=== PATIENT | female | born 1985 | race Caucasian/White ===

== ENCOUNTER 2018-08-08 13:44 | Emergency (ER) | payer MEDICAID ==
[~2018-08-08] VITALS: Ht 160 cm; Wt 90.7 kg
--- OUTSIDE RECORDS SUMMARY | 2018-08-08 13:50 | XMS REPORT | Continuity of Care Document ---
Author Author [facility] Organization [facility] Address Unknown Phone Unavailable Allergies Active Description Code Type Severity Reaction Onset Reported/Identified Relationship to Patient Clinical Status Yes latex [id number] Drug Allergy Unknown RASH 10/12/2014 Medications There is no data. Problems Date Dx Coded Attending Type Code Diagnosis Diagnosed By 10/12/2014 EMILY BAL DO Ot 655.73 Procedures There is no data. Results There is no data. Encounters ACCT No. Visit Date/Time Discharge Status Pt. Type Provider Facility Loc./Unit Complaint [id number] 10/12/2014 21:01:00 10/12/2014 22:55:00 [facility] [id number] 10/13/2017 09:00:00 10/13/2017 23:59:59 CLS Out[facility]
--- NOTE | 2018-08-08 14:29 | ED GI ---
General Chief Complaint: Rect Problems Stated Complaint: RECTAL PAIN Source of Information: Patient Exam Limitations: No Limitations History of Present Illness Date Seen by Provider: Aug 08, 2018 Time Seen by Provider: 14:19 Initial Comments Patient presents to ER by private conveyance with chief complaint she's having some pain in her anus. She has a history of hemorrhoids for the past 3 years ever since the delivery of her children. She has also had IBS and difficulty having bowel movements. She does not use any stool softeners and fiber. She denies any fever. She has had some blood on wiping. She's never had to have a hemorrhoid banded or infarcted. Allergies and Home Medications Allergies Coded Allergies: latex (Unverified Allergy, Unknown, RASH, 10/12/14) Home Medications Cyclobenzaprine Hcl 10 Mg Tablet, 10 MG PO PRN, (Reported) Vit#96/Ferrous Fum/Fa 1 Each Tablet, 1 EACH PO TID, (Reported) Patient Home Medication List Home Medication List Reviewed: Yes Review of Systems Review of Systems Constitutional: No chills, No diaphoresis EENTM: No Blurred Vision, No Double Vision Respiratory: Denies Cough, Denies Orthopnea Cardiovascular: Denies Chest Pain, Denies Lightheadedness Gastrointestinal: Constipated; Denies Diarrhea, Denies Nausea Past Rrccouo-Badwvs-Ctvvip Hx Patient Social History Alcohol Use: Denies Use Recreational Drug Use: No Smoking Status: Never a Smoker Recent Foreign Travel: No Contact w/Someone Who Travel: No Physical Exam Vital Signs Capillary Refill : Height/Weight/BMI Height: 5'1.00" Weight: 263lbs. oz. 119.180936xl; BMI Method: General Appearance: WD/WN, mild distress HEENT: PERRL/EOMI, pharynx normal Gastrointestinal: normal bowel sounds, non tender, soft Rectal: normal rectal tone, other (from 6:00 and 12:00 there are some mild external hemorrhoids noted without any erythema, tenderness. Internally there are some palpable hemorrhoids that are quite tender. No overt blood. No fissure. ) Progress/Results/Core Measures Consults : Consulting Physician: LENNY ROLDAN MD Consults Notes Dr. Roldan will set the patient up for follow-up to get it taken care of. Departure Impression Primary Impression: Internal bleeding hemorrhoids Disposition: HOME, SELF-CARE Condition: Stable Departure-Patient Inst. Decision time for Depature: 14:27 Referrals: NO,LOCAL PHYSICIAN (PCP) Primary Care Physician LENNY ROLDAN MD Patient Instructions: Hemorrhoids (DC) Add. Discharge Instructions: Use the nifedipine paced every 6 hours as needed for relief of pain. You can also use Proctofoam or other [id number]-[id number] hemorrhoid creams. Use Tylenol and ibuprofen for breakthrough pain. Follow-up with Dr. Roldan to get set up to have your hemorrhoids taken care of. All discharge instructions reviewed with patient and/or family. Voiced understanding. LUPE SEARS Aug 08, 2018 14:29
[2018-08-08 14:37] VITALS: BP 129/79
== END 2018-08-08 14:37 | disposition home or self-care (01) ==
LOC: EDUNIT# 13:44 → ER 13:46
DX: K64.8 Other hemorrhoids (principal); K58.9 Irritable bowel syndrome, unspecified; Z91.040 Latex allergy status
CPT/HCPCS: 99282

== ENCOUNTER 2018-08-12 05:30 | Outpatient (CLI) | payer MEDICAID ==
[~2018-08-12] VITALS: Ht 157.5 cm; Wt 113.4 kg
[~2018-08-12 05:30] MED LIST: CYCL10TA45 PO; PREN1TAB25 PO
== END 2018-08-12 09:53 ==
LOC: PREOP 05:30
PROVIDERS: ATTEND Surgery
DX: Z01.818 Encounter for other preprocedural examination (principal)

== ENCOUNTER 2018-08-15 09:32 | Day surgery (SDC) | payer MEDICAID ==
[~2018-08-15] VITALS: Ht 157.5 cm; Wt 113.4 kg
[2018-08-15 09:35] VITALS: BP 131/82
[2018-08-15] MEDS ORDERED: LACTATED RINGERS 1,000 ML IV PRN (09:52)
[2018-08-15] MEDS ORDERED: ceFAZolin 2 GM IV Premixed 50 ML IV ONE (10:00)
[2018-08-15] MEDS ORDERED: MIDAZOLAM 2 MG/2 ML (VERSED) VIAL ONE (11:26)
[2018-08-15] MEDS ORDERED: PROPOFOL INJECTION 50 ML IV ONE ×2 (11:26→12:39)
--- NOTE | 2018-08-15 11:38 | Progress Note-Pre Operative ---
Pre-Operative Progress Note H&P Reviewed The H&P was reviewed, patient examined and no changes noted. Date Seen by Provider: Aug 11, 2018 Time Seen by Provider: 15:00 Date H&P Reviewed: Aug 15, 2018 Time H&P Reviewed: 11:38 Pre-Operative Diagnosis: rectal pain and bleeding LENNY ROLDAN MD Aug 15, 2018 11:38
[2018-08-15] MEDS ORDERED: BUP/EPI 0.5% 1:200,000 (SENSORCAINE) 30 ML VIAL ONE (12:15)
[2018-08-15] MEDS ORDERED: HYDROmorphone 2 MG/ML VIAL (DILAUDID) IV ONE (13:00)
[2018-08-15] MEDS ORDERED: ONDANSETRON 4 MG/2 ML (SDV) Z0FRAN IVP PRN (13:00)
--- NOTE | 2018-08-15 13:03 | Operative Report ---
Operative Report Date of Procedure/Surgery Aug 15, 2018 Surgeon (s) LENNY ROLDAN MD Drug Worker (s): N/A Post-Operative Diagnosis posterior and anterior anal fissure Hemorrhoids Procedure Performed exam under anesthetic Submucosal injection of local anesthetic Colonoscopy to cecum Description of Procedure Anesthesia Type: Conscious Sedation Estimated blood loss (mL): None Specimen(s) collected/removed None Description of the Procedure Indication for the procedure: This lady presented with rectal pain and intermittent rectal bleeding of several weeks' duration. Since clinical examination in the office was limited, it was felt reasonable to perform an exam under anesthetic to establish a definitive diagnosis. Should a fissure be found, the potential for submucosal injection of local anesthetic, to achieve immediate relief of the pain was highlighted. To evaluate the source of rectal bleeding, concomitant colonoscopy was felt to be reasonable. Informed consent was obtained after reviewing the procedures in detail. Description of the procedure: She was placed supine on the operative table and our BLASTING ENTRY SPECIALIST administered sedation, monitoring her vital signs.2 g of Ancef where administered IV as prophylaxis against infection. Subsequently, she was placed in combined lithotomy position, her legs being supported on stirrups. Exam under anesthetic/submucosal injection of local anesthetic: Examination confirmed an acute anterior and a chronic posterior fissure, along with external hemorrhoids. The area was cleansed with antiseptic and 0.5 percent Marcaine with epinephrine injected submucosally around the anterior and posterior fissures. Subsequently, a gentle digital anal dilatation was performed. Colonoscopy: The colonoscope was then introduced rectum and advanced all the way to the cecum. The quality of bowel preparation was excellent. The scope was then withdrawn slowly and the mucosa examined in a systematic fashion. Findings: Internal hemorrhoids, the source of her bleeding. These were not large enough require any intervention. No polyps were found. She tolerated the procedure well and was taken back to the nursing area in a stable condition. Findings of the Procedure See op report Allergies and Home Medications Allergies Coded Allergies: latex (Unverified Allergy, Mild, RASH, 08/12/18) Home Medications No Active Prescriptions or Reported Meds Patient Home Medication List Home Medication List Reviewed: Yes LENNY ROLDAN MD Aug 15, 2018 13:03
--- NOTE | 2018-08-15 13:04 | Discharge Inst-Simple/Standard ---
Discharge Inst-Standard Discharge Medications New, Converted or Re-Newed RX: Other Patient Instructions/Follow Up Plan of Care/Instructions/FU: stool softeners to avoid constipation. To call if any concerns arise Activity as Tolerated: Yes Discharge Diet: No Restrictions LENNY ROLDAN MD Aug 15, 2018 13:04
[2018-08-15 13:25] VITALS: BP 106/54
[2018-08-15 13:55] VITALS: BP 110/80
[2018-08-15 14:25] VITALS: BP 117/81
[2018-08-15 14:40] VITALS: BP 117/81
--- NOTE | 2018-08-15 14:40 | NUR ---
HAS RESTED QUIETLY IN BED DURING RECOVERY, PASSING FLATUS OCCASIONALLY. RATES RECTAL DISCOMFORT 2. TAKING PO FLUIDS WITHOUT PROBLEM AND STEADY WHEN UP TO DRESS FOR HOME. STATES SHE IS READY FOR DISMISSAL.
== END 2018-08-15 14:40 | disposition home or self-care (01) ==
LOC: ENDO 09:32 → SDC 14:40
PROVIDERS: ATTEND Surgery
DX: K64.8 Other hemorrhoids (principal); K60.0 Acute anal fissure; K60.1 Chronic anal fissure; Z11.2 Encounter for screening for other bacterial diseases; F17.210 Nicotine dependence, cigarettes, uncomplicated; F32.9 Major depressive disorder, single episode, unspecified
CPT/HCPCS: 84703; 87081

== ENCOUNTER 2018-10-13 18:03 | Emergency (ER) | payer MEDICAID ==
[~2018-10-13] VITALS: Ht 154.9 cm; Wt 117.9 kg
[2018-10-13 18:20] LABS: BASOPHILS % (AUTO) 0 % (0-10); EOSINOPHILS # (AUTO) 0.1 10^3/uL (0.0-0.3); EOSINOPHILS % (AUTO) 0 % (0-10); HEMATOCRIT 42 % (35-52); HEMOGLOBIN 13.9 G/DL (11.5-16.0); LYMPHOCYTES # (AUTO) 3.4 X 10^3 (1.0-4.0); LYMPHOCYTES % (AUTO) 17 % (12-44); MEAN CORPUSCULAR HEMOGLOBIN 28 PG (25-34); MEAN CORPUSCULAR HGB CONC 33 G/DL (32-36); MEAN CORPUSCULAR VOLUME 85 FL (80-99); MEAN PLATELET VOLUME 11.6 FL (7.4-10.4); MONOCYTES # (AUTO) 1.5 X 10^3 (0.0-1.0); MONOCYTES % (AUTO) 8 % (0-12); NEUTROPHILS # (AUTO) 15.3 X 10^3 (1.8-7.8); NEUTROPHILS % (AUTO) 75 % (42-75); PLATELET COUNT 326 10^3/uL (130-400); RED CELL DISTRIBUTION WIDTH 13.8 % (10.0-14.5); WHITE BLOOD COUNT 20.4 10^3/uL (4.3-11.0)
--- NOTE | 2018-10-13 18:21 | ED EENT ---
History of Present Illness General Chief Complaint: Oral/Throat Problems Stated Complaint: FEVER,VOMITING,NECK SWELLING Source: patient Exam Limitations: no limitations History of Present Illness Date Seen by Provider: Oct 13, 2018 Time Seen by Provider: 18:05 Initial Comments PT ARRIVES VIA POV FROM HOME S/O SORE THROAT X 2 DAYS BEGAN RUNNING FEVER UP TO 100 AND HAVING SWEATS LAST NIGHT HAS HAD DIFFICULTY SWALLOWING TODAY, BUT IS ABLE TO SWALLOW LIQUIDS STATES SHE HAD SOME NAUSEA AND VOMITING TODAY WENT TO [facility] YESTERDAY FOR THIS PROBLEMS AND WAS GIVEN RX FOR ZITHROMAX, BUT DID NOT GET IT FILLED UNTIL IMMEDIATELY PRIOR TO ARRIVAL, THEN CAME HERE--DID NOT TAKE ANY OF THE MEDICATION HAS NOT TAKEN ANYTHING FOR SYMPTOMS PCP: DR. KERNS Allergies and Home Medications Allergies Coded Allergies: latex (Unverified Allergy, Mild, RASH, 08/12/18) Home Medications Amoxicillin/Potassium Clav 1 Each Tablet, 1 EACH PO BID Prescribed by: LUCIE CONNOLLY on 10/13/181932 Prednisone 10 Mg Tab, 40 MG PO DAILY Prescribed by: LUCIE CONNOLLY on 10/13/181932 Patient Home Medication List Home Medication List Reviewed: Yes Review of Systems Review of Systems Constitutional: see HPI, chills, fever Eyes: No Symptoms Reported Ears: No Symptoms Reported Nose: see HPI Mouth: no symptoms reported Throat: pain, swelling; denies neck stiffness, denies hoarse, denies aphonia, denies muffled; painful swallowing, difficulty with fluids Respiratory: no symptoms reported; No short of breath, No wheezing Cardiovascular: no symptoms reported Gastrointestinal: see HPI, nausea, vomiting LMP: Oct 04, 2018 (S/P BTL) Skin: no symptoms reported Neurological: No Symptoms Reported Hematologic/Lymphatic: No Symptoms Reported Immunological/Allergic: no symptoms reported Past Qjqisgo-Reakov-Rksnac Hx Patient Social History Alcohol Use: Denies Use Recreational Drug Use: No Smoking Status: Current Everyday Smoker Type Used: Cigarettes 2nd Hand Smoke Exposure: Yes Recent Foreign Travel: No Contact w/Someone Who Travel: No Recent Hopitalizations: No Seasonal Allergies Seasonal Allergies: Yes Past Medical History Surgeries: Yes (I&D BUTTOCK/PERIRECTAL ABSCESS; X 1 ; COLONOSCOPY 2018) Section, Tonsillectomy, Tubal Ligation Respiratory: No Cardiac: No Neurological: No Reproductive Disorders: No Sexually Transmitted Disease: No HIV/AIDS: No Genitourinary: No Gastrointestinal: Yes (RECTAL BLEEDING--ANAL FISSURES AND HEMORRHOIDS PER COLONOSCOPY 07/2018) Chronic Constipation, Hemorrhoids, Chronic Diarrhea Musculoskeletal: Yes ("FIBROMYALGIA OR LUPUS" PER PT; GENERALIZED PAIN ) Chronic Back Pain Endocrine: Yes (MORBID OBESITY) HEENT: Yes (GLASSES; S/P TONSILLECTOMY) Tonsilitis Loss of Vision: Bilateral Hearing Impairment: Denies Cancer: No Psychosocial: Yes Anxiety, Depression Integumentary: No Blood Disorders: No Adverse Reaction/Blood Tranf: No (N/A) Physical Exam Vital Signs Vital Signs - First Documented 10/13/18 18:06 Temp 98.7 Pulse 107 Resp 18 B/P (MAP) 137/94 (108) Pulse Ox 99 O2 Delivery Room Air Height, Weight, BMI Height: 5'2.00" Weight: 250lbs. 0.0oz. 113.392085co; 45.7 BMI Method:Stated General Appearance: no apparent distress, obese Eyes: bilateral eye normal inspection, bilateral eye PERRL, bilateral eye EOMI Ears: bilateral ear auricle normal, bilateral ear canal normal, bilateral ear TM normal Nose: normal inspection Mouth/Throat: No trismus, No uvula swelling, No voice changes; other ( TONSILLAR AND POSTERIOR PHARYNGEAL ERYTHEMA, NO EXUDATE. NO PERITONSILLAR ABSCESS. NO SWELLING OF UVULA. VOICE NORMAL. NO PROBLEMS HANDLING SECRETIONS. ) Neck: lymphadenopathy (R), lymphadenopathy (L), other (ENLARGED AND TENDER ANTERIOR / SUPERIOR CERVICAL NODES--LEFT > RIGHT) Cardiovascular: normal peripheral pulses, regular rate, rhythm, no edema, no JVD, no murmur Respiratory: normal breath sounds, no respiratory distress, no accessory muscle use Neurologic/Psychiatric: anesthesiology crna II-XII nml as tested, no motor/sensory deficits, alert, normal mood/affect, oriented x 3 Skin: normal color, warm/dry; No rash Progress/Results/Core Measures Results/Orders Lab Results Laboratory Tests Test 10/13/18 18:13 10/13/18 18:26 10/13/18 18:43 Range/Units White Blood Count 20.4 H 4.3-11.0 10^3/uL Red Blood Count 5.00 4.35-5.85 10^6/uL Hemoglobin 13.9 11.5-16.0 G/DL Hematocrit 42 35-52 % Mean Corpuscular Volume 85 80-99 FL Mean Corpuscular Hemoglobin 28 25-34 PG Mean Corpuscular Hemoglobin Concent 33 32-36 G/DL Red Cell Distribution Width 13.8 10.0-14.5 % Platelet Count 326 130-400 10^3/uL Mean Platelet Volume 11.6 H 7.4-10.4 FL Neutrophils (%) (Auto) 75 42-75 % Lymphocytes (%) (Auto) 17 12-44 % Monocytes (%) (Auto) 8 0-12 % Eosinophils (%) (Auto) 0 0-10 % Basophils (%) (Auto) 0 0-10 % Neutrophils # (Auto) 15.3 H 1.8-7.8 X 10^3 Lymphocytes # (Auto) 3.4 1.0-4.0 X 10^3 Monocytes # (Auto) 1.5 H 0.0-1.0 X 10^3 Eosinophils # (Auto) 0.1 0.0-0.3 10^3/uL Basophils # (Auto) 0.0 0.0-0.1 10^3/uL Neutrophils % (Manual) 74 % Lymphocytes % (Manual) 16 % Monocytes % (Manual) 5 % Reactive Lymphocytes 5 % Blood Morphology Comment NORMAL Sodium Level 141 135-145 MMOL/L Potassium Level 4.0 3.6-5.0 MMOL/L Chloride Level 106 98-107 MMOL/L Carbon Dioxide Level 22 21-32 MMOL/L Anion Gap 13 5-14 MMOL/L Blood Urea Nitrogen 12 7-18 MG/DL Creatinine 0.82 0.60-1.30 MG/DL Estimat Glomerular Filtration Rate > 60 BUN/Creatinine Ratio 15 Glucose Level 72 70-105 MG/DL Calcium Level 9.9 8.5-10.1 MG/DL Corrected Calcium 9.7 8.5-10.1 MG/DL Total Bilirubin 0.2 0.1-1.0 MG/DL Aspartate Amino Transf (AST/SGOT) 19 5-34 U/L Alanine Aminotransferase (ALT/SGPT) 19 0-55 U/L Alkaline Phosphatase 90 40-136 U/L Total Protein 8.3 H 6.4-8.2 GM/DL Albumin 4.3 3.2-4.5 GM/DL Amylase Level 56 25-125 U/L Lipase 20 8-78 U/L TSH Milner Testing 2.05 0.35-4.94 UIU/ML Serum Test, Qualitative NEGATIVE NEGATIVE Monoscreen NEGATIVE NEGATIVE Group A Streptococcus Screen NEGATIVE NEGATIVE Lactic Acid Level 1.04 0.50-2.00 MMOL/L Micro Results Microbiology 10/13/18 Influenza Types A,B Antigen (YULIET) - Final, Complete My Orders Orders - LUCIE CONNOLLY DO Ed Iv/Invasive Line Start (10/13/18 18:12) Monitor-Rhythm Ecg Trace Only (10/13/18 18:12) Ct Neck (Soft Tissue) W (10/13/18 18:12) Amylase (10/13/18 18:12) Cbc With Automated Diff (10/13/18 18:12) Comprehensive Metabolic Panel (10/13/18 18:12) Hcg,Qualitative Serum (10/13/18 18:12) Lactic Acid Analyzer (10/13/18 18:12) Lipase (10/13/18 18:12) Monotest (10/13/18 18:12) Rapid Strep A Screen (10/13/18 18:12) Thyroid Analyzer (10/13/18 18:12) Blood Culture (10/13/18 18:12) Influenza A And B Antigens (10/13/18 18:12) Ed Iv/Invasive Line Start (10/13/18 18:12) Lactated Ringers (Lr 1000 Ml Iv Solution (10/13/18 18:12) Manual Differential (10/13/18 18:13) Ketorolac Injection (Toradol Injection) (10/13/18 18:45) Methylprednisolone Sod Succ (Solu-Medrol (10/13/18 18:45) Iohexol Injection (Omnipaque 350 Mg/Ml 1 (10/13/18 19:15) Received Contrast (Hold Metformin- Contr (10/13/18 19:15) Ceftriaxone For Iv Use (Rocephin For I (10/13/18 19:15) Medications Given in ED Current Medications Medications Dose Ordered Sig/Roque Route Start Time Stop Time Status Last Admin Dose Admin Ceftriaxone Sodium 1000 mg/ Sterile Water 10 ml @ 200 mls/hr ONCE ONCE IV 10/13/18 19:15 10/13/18 19:17 DC 10/13/18 19:27 200 MLS/HR Iohexol 75 ml ONCE ONCE IV 10/13/18 19:15 10/13/18 19:16 DC 10/13/18 19:08 75 ML Ketorolac Tromethamine 30 mg ONCE ONCE IVP 10/13/18 18:45 10/13/18 18:46 DC 10/13/18 18:49 30 MG Lactated Ringer's 1,000 ml @ 0 mls/hr Q0M ONCE IV 10/13/18 18:12 10/13/18 18:14 DC 10/13/18 18:49 1,000 MLS/HR Methylprednisolone Sodium Succinate 125 mg ONCE ONCE IVP 10/13/18 18:45 10/13/18 18:46 DC 10/13/18 18:49 125 MG Vital Signs/I&O 10/13/18 18:06 Temp 98.7 Pulse 107 Resp 18 B/P (MAP) 137/94 (108) Pulse Ox 99 O2 Delivery Room Air Diagnostic Imaging Comments CT NECK SOFT TISSUE--SWELLING OF PHARYNGEAL AREA AND SOFT PALATE, BUT NO EPIGLOTTITIS, NO ABSCESS AND UVULA IS NOT SWOLLEN, NO ADENOPATHY--PER RADIOLOGIST REPORT @ 1928 Reviewed: Reviewed by Me Departure Impression Primary Impression: Pharyngitis Disposition: HOME, SELF-CARE Condition: Stable Departure-Patient Inst. Referrals: JAIRO KERNS MD (PCP/Family) Primary Care Physician Patient Instructions: Sore Throat, Adult (DC) Add. Discharge Instructions: FREQUENT SALT WATER GARGLES TYLENOL 1 GRAM / MOTRIN 800 MG 4 TIMES A DAY FOR PAIN OR FEVER LOTS OF CLEAR LIQUIDS--WATER, BROTH, JELLO, GATORADE TAKE ZITHROMAX 2 PILLS A DAY FOLLOW UP WITH YOUR DR IN 2-3 DAYS IF NO BETTER, RETURN TO ER IF WORSE All discharge instructions reviewed with patient and/or family. Voiced understanding. Scripts Prednisone (Prednisone) 10 Mg Tab 40 MG PO DAILY, #12 TAB Prov: LUCIE CONNOLLY DO 10/13/18 Amoxicillin/Potassium Clav (Augmentin 875-125 Tablet) 1 Each Tablet 1 EACH PO BID for INFECTION, #20 TAB Prov: LUCIE CONNOLLY DO 10/13/18 LUCIE CONNOLLY DO Oct 13, 2018 18:21
[2018-10-13 18:42] LABS: LYMPHOCYTES % (MANUAL) 16 %; MONOCYTES % (MANUAL) 5 %; NEUTROPHILS % (MANUAL) 74 %; RBC MORPH NORMAL; REACTIVE LYMPHOCYTES 5 %
[2018-10-13 18:43] LABS: ALANINE AMINOTRANSFERASE 19 U/L (0-55); ALBUMIN 4.3 GM/DL (3.2-4.5); ALKALINE PHOSPHATASE 90 U/L (40-136); AMYLASE 56 U/L (25-125); BILIRUBIN,TOTAL 0.2 MG/DL (0.1-1.0); BUN/CREATININE RATIO 15; CALCIUM 9.9 MG/DL (8.5-10.1); CARBON DIOXIDE 22 MMOL/L (21-32); CHLORIDE 106 MMOL/L (98-107); CREATININE SERUM 0.82 MG/DL (0.60-1.30); GFR ESTIMATED > 60; GLUCOSE 72 MG/DL (70-105); LIPASE 20 U/L (8-78); SODIUM 141 MMOL/L (135-145); TOTAL PROTEIN 8.3 GM/DL (6.4-8.2)
[2018-10-13] MEDS: LACTATED RINGERS 1,000 ML IV ONE (18:49)
[2018-10-13] MEDS: methylPREDNISolone 125 MG (Solu-MEDROL) VIAL IVP ONE (18:49)
[2018-10-13] MEDS: KETOROLAC 30 MG/ML VIAL IVP ONE (18:49)
[2018-10-13 19:03] LABS: TSH (THYROID ANALYZER) 2.05 UIU/ML (0.35-4.94)
[2018-10-13] MEDS: IOHEXOL 350 MG/ML 100 ML (OMNIPAQUE 350) VIAL IV ONE (19:08)
[2018-10-13] MEDS ORDERED: HOLD METFORMIN - RECEIVED CONTRAST 20 ML VIAL IV SCH (19:15)
--- NOTE | 2018-10-13 19:24 | Diagnostic Imaging Report ---
PROCEDURE: CT neck soft tissue with contrast. TECHNIQUE: Multiple contiguous axial images were obtained through the neck after the administration of contrast. Auto Exposure Controls were utilized during the CT exam to meet ALARA standards for radiation dose reduction. INDICATION: Neck swelling and sore throat with fever for 3 days. History of tonsillectomy. There is generalized edema with some enhancement of the pharyngeal region and soft palate which may be secondary to pharyngitis. There is no significant prevertebral soft tissue swelling. No focal fluid collection or drainable abscess is present at this time. Salivary glands are symmetrical and normal in appearance. The thyroid is normal. There is no adenopathy. No bony destructive process is seen. IMPRESSION: Pharyngeal edema and edema in the soft palate consistent with pharyngitis but no epiglottitis is present and no drainable abscess is present at this time. Dictated by: Dictated on workstation # [id number]
[2018-10-13] MEDS: cefTRIAXone FOR IV USE 1,000 MG in WATER (STERILE) FOR INJECTION 10 ML IV ONE (19:27)
[2018-10-13] MEDS ORDERED: PRD10T PO (19:33)
[2018-10-13] MEDS ORDERED: AMOX-358 PO (19:33)
[2018-10-13 20:25] VITALS: BP 127/72
== END 2018-10-13 20:25 | disposition home or self-care (01) ==
LOC: EDUNIT# 18:03 → ER 18:04
DX: J02.9 Acute pharyngitis, unspecified (principal); M79.7 Fibromyalgia; M32.9 Systemic lupus erythematosus, unspecified; E66.01 Morbid (severe) obesity due to excess calories; F41.9 Anxiety disorder, unspecified; F32.9 Major depressive disorder, single episode, unspecified; F17.210 Nicotine dependence, cigarettes, uncomplicated; Z91.040 Latex allergy status; Z98.890 Other specified postprocedural states; Z68.42 Body mass index [BMI] 45.0-49.9, adult; Z90.89 Acquired absence of other organs; Z98.51 Tubal ligation status; Z79.52 Long term (current) use of systemic steroids; Z87.19 Personal history of other diseases of the digestive system
CPT/HCPCS: 36415; 70491; 80053; 82150; 83605; 83690; 84443; 84703; 85007; 85027; 86308; 87040; 87430; 87804; 93041

== ENCOUNTER 2018-11-21 22:03 | Emergency (ER) | payer MEDICAID ==
[~2018-11-21] VITALS: Ht 154.9 cm; Wt 117.9 kg
[~2018-11-21 22:03] MED LIST changes: +AMOX-358 PO; +PRD10T PO
[2018-11-21] MEDS ORDERED: KETOROLAC 30 MG/ML VIAL IVP STA (22:48)
[2018-11-21] MEDS ORDERED: NS IV 1000 ML 1,000 ML IV ONE (22:48)
[2018-11-21 22:56] LABS: BILIRUBIN,URINE NEGATIVE (NEGATIVE); CLARITY,URINE SLIGHTLY CLOUDY; COLOR,URINE YELLOW; GLUCOSE, URINE (UA) NEGATIVE (NEGATIVE); KETONES,URINE NEGATIVE (NEGATIVE); LEUKOCYTE ESTERASE ,URINE 3+ (NEGATIVE); NITRITE,URINE POSITIVE (NEGATIVE); PH,URINE 6.5 (5-9); PROTEIN,URINE 3+ (NEGATIVE); UROBILINOGEN,URINE NORMAL (NORMAL)
--- NOTE | 2018-11-21 22:57 | ED GU-Female ---
General Chief Complaint: Abdominal/GI Problems Stated Complaint: ABD PAIN Source: patient Exam Limitations: no limitations History of Present Illness Date Seen by Provider: Nov 21, 2018 Time Seen by Provider: 22:45 Initial Comments Here with report of urinary symptoms and pain with urination. She thought she had urinary tract infection so she started drinking cranberry fevers and increasing fluids. She also initiated Monistat therapy. This has not helped. Today she has lower abdominal pain with some nausea and diarrhea. She does have a history of IBS. Has had urinary tract infections in the past. She is use ibuprofen and Tylenol for pain. Last ibuprofen was at 3 PM. Timing/Duration: week, getting worse Severity/Quality: moderate, aching Location: suprapubic Radiation: RLQ, LLQ Activities at Onset: none Prior Genitourinary Problems: similar symptoms Modifying Factors: Worsens With Urinating Associated Symptoms: abdominal pain, dysuria, lower back pain, nausea/vomiting, urinary frequency Allergies and Home Medications Allergies Coded Allergies: latex (Unverified Allergy, Mild, RASH, 08/12/18) Home Medications Amoxicillin/Potassium Clav 1 Each Tablet, 1 EACH PO BID Prescribed by: LUCIE CONNOLLY on 10/13/181932 Prednisone 10 Mg Tab, 40 MG PO DAILY Prescribed by: LUCIE CONNOLLY on 10/13/181932 Patient Home Medication List Home Medication List Reviewed: Yes Review of Systems Review of Systems Constitutional: see HPI; No chills, No fever EENTM: no symptoms reported Respiratory: no symptoms reported Cardiovascular: no symptoms reported Gastrointestinal: see HPI Genitourinary: see HPI Musculoskeletal: see HPI All Other Systemes Reviewed Negative Unless Noted: Yes Past Nfyhpgg-Kuczpf-Vtxukw Hx Past Med/Social Hx: Reviewed Nursing Past Med/Soc Hx Patient Social History Alcohol Use: Occasionally Uses Recreational Drug Use: No Smoking Status: Current Everyday Smoker Type Used: Cigarettes 2nd Hand Smoke Exposure: Yes Recent Foreign Travel: No Contact w/Someone Who Travel: No Recent Hopitalizations: No Seasonal Allergies Seasonal Allergies: Yes Past Medical History Surgeries: Yes (I&D BUTTOCK/PERIRECTAL ABSCESS; X 1 ; COLONOSCOPY 07/2018) Section, Tonsillectomy, Tubal Ligation Respiratory: No Cardiac: No Neurological: No 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 Sexually Transmitted Disease: No HIV/AIDS: No Genitourinary: No Gastrointestinal: Yes (RECTAL BLEEDING--ANAL FISSURES AND HEMORRHOIDS PER COLONOSCOPY 07/2018) Chronic Constipation, Hemorrhoids, Chronic Diarrhea Musculoskeletal: Yes ("FIBROMYALGIA OR LUPUS" PER PT; GENERALIZED PAIN ) Chronic Back Pain Endocrine: Yes (MORBID OBESITY) HEENT: Yes (GLASSES; S/P TONSILLECTOMY) Tonsilitis Loss of Vision: Bilateral Hearing Impairment: Denies Cancer: No Psychosocial: Yes Anxiety, Depression Integumentary: No Blood Disorders: No Adverse Reaction/Blood Tranf: No (N/A) Family Medical History Reviewed Nursing Family Hx Physical Exam Vital Signs Vital Signs - First Documented 11/21/18 22:29 Temp 98.8 Pulse 100 Resp 18 B/P (MAP) 153/101 (118) Capillary Refill : Height, Weight, BMI Height: 5'1.00" Weight: 260lbs. 0.0oz. [id number]; 45.7 BMI Method:Stated General Appearance: WD/WN, no apparent distress HEENT: PERRL/EOMI, pharynx normal Neck: full range of motion, supple Cardiovascular: regular rate, rhythm, no murmur Respiratory: lungs clear, normal breath sounds Gastrointestinal: soft, tenderness (suprapubic) Back: normal inspection, no CVA tenderness, no vertebral tenderness Extremities: non-tender, normal inspection Neurologic/Psychiatric: alert, oriented x 3 Skin: normal color, warm/dry Progress/Results/Core Measures Suspected Sepsis SIRS Temperature: Pulse: Respiratory Rate: Laboratory Tests 11/21/18 22:53: White Blood Count 15.3H Blood Pressure / Mean: Laboratory Tests 11/21/18 22:53: Creatinine 0.89, Platelet Count 383, Total Bilirubin 0.2 Results/Orders Lab Results Laboratory Tests Test 11/21/18 22:32 11/21/18 22:53 Range/Units Urine Color YELLOW Urine Clarity SLIGHTLY CLOUDY Urine pH 6.5 5-9 Urine Specific [place] 1.010 L 1.016-1.022 Urine Protein 3+ H NEGATIVE Urine Glucose (UA) NEGATIVE NEGATIVE Urine Ketones NEGATIVE NEGATIVE Urine Nitrite POSITIVE H NEGATIVE Urine Bilirubin NEGATIVE NEGATIVE Urine Urobilinogen NORMAL NORMAL MG/DL Urine Leukocyte Esterase 3+ H NEGATIVE Urine RBC (Auto) 4+ H NEGATIVE Urine RBC 2-5 H /HPF Urine WBC TNTC H /HPF Urine Squamous Epithelial Cells 0-2 /HPF Urine Crystals NONE /LPF Urine Bacteria LARGE H /HPF Urine Casts NONE /LPF Urine Mucus NEGATIVE /LPF Urine Culture Indicated YES Urine Test NEGATIVE NEGATIVE White Blood Count 15.3 H 4.3-11.0 10^3/uL Red Blood Count 4.84 4.35-5.85 10^6/uL Hemoglobin 13.4 11.5-16.0 G/DL Hematocrit 41 35-52 % Mean Corpuscular Volume 84 80-99 FL Mean Corpuscular Hemoglobin 28 25-34 PG Mean Corpuscular Hemoglobin Concent 33 32-36 G/DL Red Cell Distribution Width 13.8 10.0-14.5 % Platelet Count 383 130-400 10^3/uL Mean Platelet Volume 11.2 H 7.4-10.4 FL Neutrophils (%) (Auto) 64 42-75 % Lymphocytes (%) (Auto) 29 12-44 % Monocytes (%) (Auto) 6 0-12 % Eosinophils (%) (Auto) 1 0-10 % Basophils (%) (Auto) 0 0-10 % Neutrophils # (Auto) 9.9 H 1.8-7.8 X 10^3 Lymphocytes # (Auto) 4.5 H 1.0-4.0 X 10^3 Monocytes # (Auto) 0.9 0.0-1.0 X 10^3 Eosinophils # (Auto) 0.1 0.0-0.3 10^3/uL Basophils # (Auto) 0.0 0.0-0.1 10^3/uL Neutrophils % (Manual) 56 % Lymphocytes % (Manual) 38 % Monocytes % (Manual) 6 % Blood Morphology Comment NORMAL Sodium Level 139 135-145 MMOL/L Potassium Level 3.9 3.6-5.0 MMOL/L Chloride Level 106 98-107 MMOL/L Carbon Dioxide Level 22 21-32 MMOL/L Anion Gap 11 5-14 MMOL/L Blood Urea Nitrogen 7 7-18 MG/DL Creatinine 0.89 0.60-1.30 MG/DL Estimat Glomerular Filtration Rate > 60 BUN/Creatinine Ratio 8 Glucose Level 102 70-105 MG/DL Calcium Level 9.8 8.5-10.1 MG/DL Corrected Calcium 9.7 8.5-10.1 MG/DL Total Bilirubin 0.2 0.1-1.0 MG/DL Aspartate Amino Transf (AST/SGOT) 14 5-34 U/L Alanine Aminotransferase (ALT/SGPT) 15 0-55 U/L Alkaline Phosphatase 93 40-136 U/L C-Reactive Protein High Sensitivity 4.21 H 0.00-0.50 MG/DL Total Protein 7.7 6.4-8.2 GM/DL Albumin 4.1 3.2-4.5 GM/DL My Orders Orders - RAMY ACOSTA MD Cbc With Automated Diff (11/21/18 22:48) Comprehensive Metabolic Panel (11/21/18 22:48) Hs C Reactive Protein (11/21/18 22:48) Hcg,Qualitative Urine (11/21/18 22:48) Ua Culture If Indicated (11/21/18 22:48) Ed Iv/Invasive Line Start (11/21/18 22:48) Ns Iv 1000 Ml (Sodium Chloride 0.9%) (11/21/18 22:48) Ketorolac Injection (Toradol Injection) (11/21/18 22:48) Manual Differential (11/21/18 22:53) Urine Culture (11/21/18 22:32) Ceftriaxone For Iv Use (Rocephin For I (11/22/18 00:00) Ed Iv/Invasive Line Start (11/21/18 23:54) Lactated Ringers (Lr 1000 Ml Iv Solution (11/21/18 23:54) Medications Given in ED Current Medications Medications Dose Ordered Sig/Roque Route Start Time Stop Time Status Last Admin Dose Admin Ceftriaxone Sodium 1000 mg/ Sterile Water 10 ml @ 200 mls/hr ONCE ONCE IV 11/22/18 00:00 11/22/18 00:02 DC 11/22/18 00:04 200 MLS/HR Lactated Ringer's 1,000 ml @ 0 mls/hr Q0M ONCE IV 11/21/18 23:54 11/21/18 23:56 DC 11/22/18 00:04 999 MLS/HR Sodium Chloride 1,000 ml @ 0 mls/hr Q0M ONCE IV 11/21/18 22:48 11/21/18 22:51 DC 11/21/18 23:02 999 MLS/HR Vital Signs/I&O 11/21/18 22:29 Temp 98.8 Pulse 100 Resp 18 B/P (MAP) 153/101 (118) 11/22/18 00:00 Intake Total 1000 ml Balance 1000 ml Capillary Refill : Progress Note : Progress Note Seen and evaluated. IV, labs, UA, normal saline 1 L bolus, Toradol 30 mg IV ordered. Monitor patient. Repeat normal saline bolus ordered. Rocephin 1 g IV for other significant urinary tract infection in the setting of the patient has diarrhea. She would like to go home if possible so we will try this and then outpatient therapy. 0058: Fluids complete and patient feel a little better. Discharged home with return precautions. Patient verbalize understanding instructions and agreement with plan. Departure Impression Primary Impression: Urinary tract infection Qualified Codes: N30.00 - Acute cystitis without hematuria Disposition: HOME, SELF-CARE Condition: Improved Departure-Patient Inst. Decision time for Depature: 00:59 Referrals: NO,LOCAL PHYSICIAN (PCP/Family) Primary Care Physician Patient Instructions: Urinary Tract Infection, Adult (DC) Add. Discharge Instructions: All discharge instructions reviewed with patient and/or family. Voiced understanding. Take medications as directed.You may take ibuprofen 800 mg every 8 hours as needed for pain. You may also take Tylenol/acetaminophen 1000 mg every 8 hours as needed for pain. . Plenty of fluids. Follow-up with your Dr. in a few days for recheck. Return for worse pain, fever, inability to drink fluids, weakness, breathing problems or other concerns as needed. Scripts Cephalexin (Cephalexin) 500 Mg Tablet 500 MG PO BID, #14 TAB 0 Refills Prov: RAMY ACOSTA MD 11/22/18 Work/School Note: [employer] Listing RAMY ACOSTA MD Nov 21, 2018 22:57
[2018-11-21 23:04] LABS: BASOPHILS % (AUTO) 0 % (0-10); EOSINOPHILS # (AUTO) 0.1 10^3/uL (0.0-0.3); EOSINOPHILS % (AUTO) 1 % (0-10); HEMATOCRIT 41 % (35-52); HEMOGLOBIN 13.4 G/DL (11.5-16.0); LYMPHOCYTES # (AUTO) 4.5 X 10^3 (1.0-4.0); LYMPHOCYTES % (AUTO) 29 % (12-44); MEAN CORPUSCULAR HEMOGLOBIN 28 PG (25-34); MEAN CORPUSCULAR HGB CONC 33 G/DL (32-36); MEAN CORPUSCULAR VOLUME 84 FL (80-99); MEAN PLATELET VOLUME 11.2 FL (7.4-10.4); MONOCYTES # (AUTO) 0.9 X 10^3 (0.0-1.0); MONOCYTES % (AUTO) 6 % (0-12); NEUTROPHILS # (AUTO) 9.9 X 10^3 (1.8-7.8); NEUTROPHILS % (AUTO) 64 % (42-75); PLATELET COUNT 383 10^3/uL (130-400); RED CELL DISTRIBUTION WIDTH 13.8 % (10.0-14.5); WHITE BLOOD COUNT 15.3 10^3/uL (4.3-11.0)
[2018-11-21 23:05] LABS: BACTERIA,URINE LARGE /HPF; SQUAMOUS EPITHELIAL CELL,UR 0-2 /HPF; WBC,URINE TNTC /HPF
[2018-11-21 23:19] LABS: ALANINE AMINOTRANSFERASE 15 U/L (0-55); ALBUMIN 4.1 GM/DL (3.2-4.5); ALKALINE PHOSPHATASE 93 U/L (40-136); BILIRUBIN,TOTAL 0.2 MG/DL (0.1-1.0); BUN/CREATININE RATIO 8; CALCIUM 9.8 MG/DL (8.5-10.1); CARBON DIOXIDE 22 MMOL/L (21-32); CHLORIDE 106 MMOL/L (98-107); CREATININE SERUM 0.89 MG/DL (0.60-1.30); GFR ESTIMATED > 60; GLUCOSE 102 MG/DL (70-105); POTASSIUM 3.9 MMOL/L (3.6-5.0); SODIUM 139 MMOL/L (135-145); TOTAL PROTEIN 7.7 GM/DL (6.4-8.2)
[2018-11-21 23:26] LABS: LYMPHOCYTES % (MANUAL) 38 %; MONOCYTES % (MANUAL) 6 %; NEUTROPHILS % (MANUAL) 56 %; RBC MORPH NORMAL
[2018-11-21] MEDS ORDERED: LACTATED RINGERS 1,000 ML IV ONE (23:54)
[2018-11-22] MEDS ORDERED: cefTRIAXone FOR IV USE 1,000 MG in WATER (STERILE) FOR INJECTION 10 ML IV ONE ×2
[2018-11-22] MEDS ORDERED: CEPH500T PO (01:00)
[2018-11-22 01:08] VITALS: BP 125/88
== END 2018-11-22 01:10 | disposition home or self-care (01) ==
LOC: EDUNIT# 22:03 → ER 22:04
DX: N39.0 Urinary tract infection, site not specified (principal); K58.9 Irritable bowel syndrome, unspecified; M79.7 Fibromyalgia; E66.01 Morbid (severe) obesity due to excess calories; M32.9 Systemic lupus erythematosus, unspecified; F41.9 Anxiety disorder, unspecified; F32.9 Major depressive disorder, single episode, unspecified; F17.210 Nicotine dependence, cigarettes, uncomplicated; Z87.19 Personal history of other diseases of the digestive system; Z98.890 Other specified postprocedural states; Z68.42 Body mass index [BMI] 45.0-49.9, adult; Z90.89 Acquired absence of other organs; Z79.52 Long term (current) use of systemic steroids; Z98.51 Tubal ligation status
CPT/HCPCS: 36415; 80053; 81000; 84703; 85007; 85027; 86141; 87077; 87088; 87186; 96361; 96374; 96375

== ENCOUNTER 2018-11-30 20:01 | Emergency (ER) | payer MEDICAID ==
[~2018-11-30] VITALS: Ht 154.9 cm; Wt 117.9 kg
[~2018-11-30 20:01] MED LIST changes: +CEPH500T PO
--- NOTE | 2018-11-30 20:18 | NUR ---
I&D X2 abscesses to inner lt thigh. Would culture obtained. Area irriagted with normal saline and covered with 4x4 gauze. Addendum: 11/30/18 at 2145 by JEANE Preformed by Brock Hernandez APRN.
[2018-11-30 20:26] LABS: BILIRUBIN,URINE NEGATIVE (NEGATIVE); CLARITY,URINE CLEAR; COLOR,URINE YELLOW; GLUCOSE, URINE (UA) NEGATIVE (NEGATIVE); KETONES,URINE NEGATIVE (NEGATIVE); LEUKOCYTE ESTERASE ,URINE 2+ (NEGATIVE); NITRITE,URINE NEGATIVE (NEGATIVE); PH,URINE 6 (5-9); PROTEIN,URINE 2+ (NEGATIVE); UROBILINOGEN,URINE NORMAL (NORMAL)
--- NOTE | 2018-11-30 20:26 | ED GU-Female ---
General Chief Complaint: - Urinary Stated Complaint: PAIN IN ABD,BURNING,ITCHING Source: patient Exam Limitations: no limitations History of Present Illness Date Seen by Provider: Nov 30, 2018 Time Seen by Provider: 20:23 Initial Comments ER with reports of urinary burning and frequency. She denies fevers chills nausea or vomiting. She also reports some pain to the medial proximal left thigh where she has a history of recurrent abscesses. These particular abscesses popped up about 3-4 days ago. She was diagnosed with urinary tract infection just over a week ago, given a course of Keflex but denies improvement. Timing/Duration: constant, getting worse Severity/Quality: moderate Location: other (left thigh) Activities at Onset: none Allergies and Home Medications Allergies Coded Allergies: latex (Unverified Allergy, Mild, RASH, 08/12/18) Home Medications Amoxicillin/Potassium Clav 1 Each Tablet, 1 EACH PO BID Prescribed by: LUCIE CONNOLLY on 10/13/181932 Cephalexin 500 Mg Tablet, 500 MG PO BID Prescribed by: RAMY ACOSTA on 11/22/18 010 Prednisone 10 Mg Tab, 40 MG PO DAILY Prescribed by: LUCIE CONNOLLY on 10/13/181932 Patient Home Medication List Home Medication List Reviewed: Yes Review of Systems Review of Systems Constitutional: see HPI; No chills, No fever EENTM: see HPI Respiratory: no symptoms reported Cardiovascular: no symptoms reported Genitourinary: see HPI, burning, dysuria Musculoskeletal: no symptoms reported Skin: see HPI Psychiatric/Neurological: No Symptoms Reported Endocrine: No Symptoms Reported Past Dfcupyf-Kxfblz-Ybwfjd Hx Patient Social History Type Used: Cigarettes 2nd Hand Smoke Exposure: Yes Recent Foreign Travel: No Contact w/Someone Who Travel: No Recent Hopitalizations: No Seasonal Allergies Seasonal Allergies: Yes Past Medical History Surgeries: Yes (I&D BUTTOCK/PERIRECTAL ABSCESS; X 1 ; COLONOSCOPY 07/2018) Section, Tonsillectomy, Tubal Ligation Respiratory: No Cardiac: No Neurological: No Reproductive Disorders: No [employer]ER [employer]KING [employer]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 Sexually Transmitted Disease: No HIV/AIDS: No Genitourinary: No Gastrointestinal: Yes (RECTAL BLEEDING--ANAL FISSURES AND HEMORRHOIDS PER COLONOSCOPY 07/2018) Chronic Constipation, Hemorrhoids, Chronic Diarrhea Musculoskeletal: Yes ("FIBROMYALGIA OR LUPUS" PER PT; GENERALIZED PAIN ) Chronic Back Pain Endocrine: Yes (MORBID OBESITY) HEENT: Yes (GLASSES; S/P TONSILLECTOMY) Tonsilitis Loss of Vision: Bilateral Hearing Impairment: Denies Cancer: No Psychosocial: Yes Anxiety, Depression Integumentary: No Blood Disorders: No Adverse Reaction/Blood Tranf: No (N/A) Physical Exam Vital Signs Vital Signs - First Documented 11/30/18 20:06 Temp 99.0 Pulse 106 Resp 16 B/P (MAP) 167/79 (108) Pulse Ox 98 O2 Delivery Room Air Capillary Refill : Height, Weight, BMI Height: 5'1.00" Weight: 260lbs. 0.0oz. 117.614596hs; 45.7 BMI Method:Stated General Appearance: WD/WN, no apparent distress, obese HEENT: PERRL/EOMI, normal ENT inspection Cardiovascular: regular rate, rhythm, no murmur; No tachycardia Respiratory: no respiratory distress, no accessory muscle use Gastrointestinal: normal bowel sounds, non tender, soft Neurologic/Psychiatric: alert, normal mood/affect, oriented x 3 Skin: normal color, warm/dry, other (there are 2 marble sized fluctuant erythematous abscesses to the proximal medial thigh about 5 cm apart.) Procedures/Interventions I&D : Blade Size: 11 Progress The 2 abscesses to the proximal medial thigh were anesthetized with 0.5 mL of 2% lidocaine with epinephrine each. Incision was then made with an 11 blade scalpel. Purulent material was expressed. Culture collected and sent to lab. Wounds irrigated with 10 cc of saline each. Covered with gauze. Progress/Results/Core Measures Suspected Sepsis SIRS Temperature: Pulse: Respiratory Rate: Laboratory Tests 11/30/18 20:39: White Blood Count 14.1H Blood Pressure / Mean: Laboratory Tests 11/30/18 20:39: Platelet Count 322 Results/Orders Lab Results Laboratory Tests Test 11/30/18 20:10 11/30/18 20:39 Range/Units Urine Color YELLOW Urine Clarity CLEAR Urine pH 6 5-9 Urine Specific [place] 1.020 1.016-1.022 Urine Protein 2+ H NEGATIVE Urine Glucose (UA) NEGATIVE NEGATIVE Urine Ketones NEGATIVE NEGATIVE Urine Nitrite NEGATIVE NEGATIVE Urine Bilirubin NEGATIVE NEGATIVE Urine Urobilinogen NORMAL NORMAL MG/DL Urine Leukocyte Esterase 2+ H NEGATIVE Urine RBC (Auto) 2+ H NEGATIVE Urine RBC NONE /HPF Urine WBC 2-5 /HPF Urine Squamous Epithelial Cells 10-25 H /HPF Urine Crystals NONE /LPF Urine Bacteria MODERATE H /HPF Urine Casts NONE /LPF Urine Mucus NEGATIVE /LPF Urine Culture Indicated YES White Blood Count 14.1 H 4.3-11.0 10^3/uL Red Blood Count 4.69 4.35-5.85 10^6/uL Hemoglobin 13.3 11.5-16.0 G/DL Hematocrit 40 35-52 % Mean Corpuscular Volume 84 80-99 FL Mean Corpuscular Hemoglobin 28 25-34 PG Mean Corpuscular Hemoglobin Concent 34 32-36 G/DL Red Cell Distribution Width 14.0 10.0-14.5 % Platelet Count 322 130-400 10^3/uL Mean Platelet Volume 11.6 H 7.4-10.4 FL Neutrophils (%) (Auto) 60 42-75 % Lymphocytes (%) (Auto) 31 12-44 % Monocytes (%) (Auto) 8 0-12 % Eosinophils (%) (Auto) 1 0-10 % Basophils (%) (Auto) 0 0-10 % Neutrophils # (Auto) 8.5 H 1.8-7.8 X 10^3 Lymphocytes # (Auto) 4.4 H 1.0-4.0 X 10^3 Monocytes # (Auto) 1.1 H 0.0-1.0 X 10^3 Eosinophils # (Auto) 0.1 0.0-0.3 10^3/uL Basophils # (Auto) 0.0 0.0-0.1 10^3/uL My Orders Orders - DARRION BERRY APRN Urine Bedside (11/30/18 20:22) Wound Culture (11/30/18 20:22) Cbc With Automated Diff (11/30/18 20:33) Manual Differential (11/30/18 20:39) Vital Signs/I&O 11/30/18 20:06 Temp 99.0 Pulse 106 Resp 16 B/P (MAP) 167/79 (108) Pulse Ox 98 O2 Delivery Room Air Capillary Refill : Departure Impression Primary Impression: Urinary tract infection Qualified Codes: N30.00 - Acute cystitis without hematuria Additional Impression: Abscess Disposition: 01 HOME, SELF-CARE Condition: Stable Departure-Patient Inst. Decision time for Depature: 20:25 Referrals: NO,LOCAL PHYSICIAN (PCP/Family) Primary Care Physician Patient Instructions: Skin Abscess Add. Discharge Instructions: 1. Warm compresses to the area 2. Antibiotics as directed 3. Return to ER for any concerns All discharge instructions reviewed with patient and/or family. Voiced understanding. Scripts Sulfamethoxazole/Trimethoprim (Bactrim Ds Tablet) 1 Each Tablet 1 EACH PO BID, #14 TAB Prov: DARRION BERRY APRN 11/30/18 DARRION BERRY APRN Nov 30, 2018 20:26
[2018-11-30 20:47] LABS: BASOPHILS % (AUTO) 0 % (0-10); EOSINOPHILS # (AUTO) 0.1 10^3/uL (0.0-0.3); EOSINOPHILS % (AUTO) 1 % (0-10); HEMATOCRIT 40 % (35-52); HEMOGLOBIN 13.3 G/DL (11.5-16.0); LYMPHOCYTES # (AUTO) 4.4 X 10^3 (1.0-4.0); LYMPHOCYTES % (AUTO) 31 % (12-44); MEAN CORPUSCULAR HEMOGLOBIN 28 PG (25-34); MEAN CORPUSCULAR HGB CONC 34 G/DL (32-36); MEAN CORPUSCULAR VOLUME 84 FL (80-99); MEAN PLATELET VOLUME 11.6 FL (7.4-10.4); MONOCYTES # (AUTO) 1.1 X 10^3 (0.0-1.0); MONOCYTES % (AUTO) 8 % (0-12); NEUTROPHILS # (AUTO) 8.5 X 10^3 (1.8-7.8); NEUTROPHILS % (AUTO) 60 % (42-75); PLATELET COUNT 322 10^3/uL (130-400); WHITE BLOOD COUNT 14.1 10^3/uL (4.3-11.0)
[2018-11-30 21:03] LABS: BACTERIA,URINE MODERATE /HPF
[2018-11-30] MEDS ORDERED: SULF1TAB35 PO (21:08)
[2018-11-30 21:11] LABS: BAND NEUTROPHILS 2 %; LYMPHOCYTES % (MANUAL) 26 %; NEUTROPHILS % (MANUAL) 57 %
[2018-11-30 21:12] LABS: EOSINOPHILS % (MANUAL) 1 %; MONOCYTES % (MANUAL) 15 %; RBC MORPH NORMAL
[2018-11-30] MEDS ORDERED: LIDOCAINE 1% INJ 20 ML 20 ML VIAL INJ ONE (21:15)
[2018-11-30] MEDS ORDERED: cefTRIAXone 1,000 MG/2.86 ml vial (IM ONLY) IM SCH (21:15)
[2018-11-30 21:28] VITALS: BP 131/85
== END 2018-11-30 21:28 | disposition home or self-care (01) ==
LOC: EDUNIT# 20:01 → ER 20:02
DX: N39.0 Urinary tract infection, site not specified (principal); L02.416 Cutaneous abscess of left lower limb; E66.01 Morbid (severe) obesity due to excess calories; F41.9 Anxiety disorder, unspecified; F32.9 Major depressive disorder, single episode, unspecified; Z91.040 Latex allergy status; Z79.52 Long term (current) use of systemic steroids; Z68.42 Body mass index [BMI] 45.0-49.9, adult; Z98.890 Other specified postprocedural states; Z90.89 Acquired absence of other organs; Z98.51 Tubal ligation status; Z87.19 Personal history of other diseases of the digestive system
CPT/HCPCS: 36415; 81000; 84703; 85007; 85027; 87070; 87088; 87205; 96372; 99284

== ENCOUNTER 2021-01-26 21:02 | Emergency (ER) | payer MEDICAID, OTHER ==
[~2021-01-26 21:02] MED LIST changes: +SULF1TAB38 PO
[2021-01-26 21:22] VITALS: BP 156/70
[2021-01-26] MEDS ORDERED: SULF1TAB38 PO ×2 (21:29→22:00)
--- NOTE | 2021-01-26 21:29 | ED Integumentary General ---
General Stated Complaint: BREAST WOUND Source: patient Exam Limitations: no limitations History of Present Illness Date Seen by Provider: Jan 26, 2021 Time Seen by Provider: 21:26 Initial Comments To ER with a left breast wound. This breast lesion is on the lateral aspect of the left breast and has been present for about a year. [place] and states that she had a mammogram and an ultrasound and was told that it was noncancerous. Over the past 24 hours she has had some newly developing redness and tenderness to this lesion. Timing/Duration: just prior to arrival Severity: moderate Possible Cause: no cause identified Associated Symptoms: denies symptoms Allergies and Home Medications Allergies Coded Allergies: latex (Unverified Allergy, Mild, RASH, 08/12/18) Home Medications Amoxicillin/Potassium Clav 1 Each Tablet, 1 EACH PO BID Prescribed by: LUCIE CONNOLLY on 10/13/181932 Cephalexin 500 Mg Tablet, 500 MG PO BID Prescribed by: RAMY ACOSTA on 11/22/18 010 Prednisone 10 Mg Tab, 40 MG PO DAILY Prescribed by: LUCIE CONNOLLY on 10/13/181932 Sulfamethoxazole/Trimethoprim 1 Each Tablet, 1 EACH PO BID Prescribed by: DARRION BERRY on 11/30/182107 Sulfamethoxazole/Trimethoprim 1 Each Tablet, 1 EACH PO BID Prescribed by: DARRION BERRY on 01/26/212128 Patient Home Medication List Home Medication List Reviewed: Yes Review of Systems Review of Systems Constitutional: see HPI; No chills, No fever EENTM: see HPI Respiratory: no symptoms reported Cardiovascular: no symptoms reported Genitourinary: no symptoms reported Musculoskeletal: no symptoms reported Skin: see HPI Psychiatric/Neurological: No Symptoms Reported Endocrine: No Symptoms Reported Past Cgkjttu-Cfhxgd-Jrqsxx Hx Seasonal Allergies Seasonal Allergies: Yes Past Medical History Surgeries: Yes (I&D BUTTOCK/PERIRECTAL ABSCESS; X 1 ; COLONOSCOPY 07/2018) Section, Tonsillectomy, Tubal Ligation Respiratory: No Cardiac: No Neurological: No 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 Sexually Transmitted Disease: No HIV/AIDS: No Genitourinary: No Gastrointestinal: Yes (RECTAL BLEEDING--ANAL FISSURES AND HEMORRHOIDS PER COLONOSCOPY 07/2018) Chronic Constipation, Hemorrhoids, Chronic Diarrhea Musculoskeletal: Yes ("FIBROMYALGIA OR LUPUS" PER PT; GENERALIZED PAIN ) Chronic Back Pain Endocrine: Yes (MORBID OBESITY) HEENT: Yes (GLASSES; S/P TONSILLECTOMY) Tonsilitis Loss of Vision: Bilateral Hearing Impairment: Denies Cancer: No Psychosocial: Yes Anxiety, Depression Integumentary: No Blood Disorders: No Adverse Reaction/Blood Tranf: No (N/A) Physical Exam Vital Signs Capillary Refill : General Appearance: WD/WN, no apparent distress HEENT: PERRL/EOMI, normal ENT inspection Respiratory: no respiratory distress, no accessory muscle use Gastrointestinal: normal bowel sounds, non tender, soft Neurologic/Psychiatric: alert, normal mood/affect, oriented x 3 Skin: normal color, warm/dry Skin Problem Character: abscess, other (To the lateral aspect of the left breast is a half dollar sized area of erythema with a central area that is dime sized of fluctuance. No draining punctum.) Procedures/Interventions I&D : Blade Size: 11 Progress Area to the lateral aspect of the left breast was anesthetized with 1 mL of 1% lidocaine without epinephrine. Incision made with 11 blade scalpel. Moderate amount of thick curd-like sebaceous material expressed. Progress/Results/Core Measures Results/Orders My Orders Orders - DARRION BERRY APRN Wound Culture (01/26/21 21:25) Departure Impression Primary Impression: Sebaceous cyst of breast Disposition: 01 HOME, SELF-CARE Condition: Stable Departure-Patient Inst. Decision time for Depature: 21:27 Referrals: SAL MONTEZ BETHANY N MD GAULT,JACKSON VENTURA MD,LOCAL PHYSICIAN (PCP) Primary Care Physician Patient Instructions: Abscess Incision and Drainage ED Add. Discharge Instructions: 1. Antibiotics as directed. Pain medication as needed. Warm compresses to the area. 3 important to follow-up with primary care to reevaluate this and ensure complete resolution. Scripts Sulfamethoxazole/Trimethoprim (Bactrim Ds Tablet) 1 Each Tablet 1 EACH PO BID, #14 TAB . Prov: DARRION BERRY APRN 01/26/21 DARRION BERRY APRN Jan 26, 2021 21:29
== END 2021-01-26 22:10 | disposition home or self-care (01) ==
LOC: EDUNIT# 21:02 → ER 21:05
DX: N60.82 Other benign mammary dysplasias of left breast (principal); E66.01 Morbid (severe) obesity due to excess calories; Z79.52 Long term (current) use of systemic steroids
CPT/HCPCS: 87070; 87077; 87205; 99283

== ENCOUNTER 2021-04-08 10:12 | Emergency (ER) | payer MEDICAID ==
[~2021-04-08] VITALS: Ht 154.9 cm; Wt 113.0 kg
--- NOTE | 2021-04-08 10:55 | ED Lower Extremity ---
General Chief Complaint: Lower Extremity Stated Complaint: L ANKLE PAIN FELL Nursing Triage Note: PT ARRIVES TO ER BY WC WITH C/O L ANKLE PAIN DUE TO A FALL LAST NIGHT. PT STATES SHE HAS "WEAK" ANKLES AND ROLLS THEM OFTEN Source: patient Exam Limitations: no limitations (KRYSTINA THACKER STUDENT) History of Present Illness Date Seen by Provider: Apr 08, 2021 Time Seen by Provider: 10:29 Initial Comments This is Zeenat a 36 yo female that presented to the ED via private vehicle with the chief complaint of left ankle pain. Pt put the pain at a 8/10 on the pain scale. She stated that she twisted her ankle last night while walking down the stairs causing her to fall. She described hitting the side of her head but stated that it was minimal impact. She states that she twists her ankle about once a month but the pain generally is gone by the next day. This morning she was unable to walk and had to crawl to the bathroom and that is when she knew she needed to come in. She has tried tylenol, elevation, and ice but nothing has helped. Pt has a PMH of Lupus and had general tenderness along most joints. She is experiencing numbness in her left 5th digit. The left ankle is swollen and restricted. Onset: yesterday Severity: moderate Pain/Injury Location: left ankle Method of Injury: fell Modifying Factors: Improves With Immobilization; Worse With Movement (KRYSTINA THACKER STUDENT) Allergies and Home Medications Allergies Coded Allergies: latex (Unverified Allergy, Mild, RASH, 08/12/18) Patient Home Medication List Home Medication List Reviewed: Yes (MELVIN ROWLAND MD) Amoxicillin/Potassium Clav (Augmentin 875-125 Tablet) 1 Each Tablet, 1 EACH PO BID Prescribed by: LUCIE CONNOLLY on 10/13/181932 Cephalexin (Cephalexin) 500 Mg Tablet, 500 MG PO BID Prescribed by: RAMY ACOSTA on 11/22/18 010 Prednisone (Prednisone) 10 Mg Tab, 40 MG PO DAILY Prescribed by: LUCIE CONNOLLY on 10/13/181932 Sulfamethoxazole/Trimethoprim (Bactrim Ds Tablet) 1 Each Tablet, 1 EACH PO BID Prescribed by: DARRION BERRY on 11/30/182107 Sulfamethoxazole/Trimethoprim (Bactrim Ds Tablet) 1 Each Tablet, 1 EACH PO BID Prescribed by: DARRION BERRY on 01/26/212199 Review of Systems Constitutional: no symptoms reported EENTM: no symptoms reported Respiratory: no symptoms reported Cardiovascular: no symptoms reported Gastrointestinal: no symptoms reported Genitourinary: no symptoms reported Musculoskeletal: see HPI, joint pain, joint swelling Skin: no symptoms reported Psychiatric/Neurological: Numbness (KRYSTINA THACKER) Past Mcuxpih-Dlghzp-Kyylxi Hx Patient Social History Tobacco Use?: Yes Tobacco type used: Cigarettes Smoking Status: Current Everyday Smoker Substance use?: No Alcohol Use?: Yes Alcohol type: Beer Alcohol Frequency: Rarely (KRYSTINA THACKER) Immunizations Up To Date Influenza Vaccine Up-to-Date: No; Not Current (KRYSTINA THACKER) Seasonal Allergies Seasonal Allergies: Yes (KRYSTINA THACKER) Past Medical History Surgeries: Yes (I&D BUTTOCK/PERIRECTAL ABSCESS; X 1 ; COLONOSCOPY 07/2018) Section, Tonsillectomy, Tubal Ligation Respiratory: No Cardiac: No Neurological: No Last Menstrual Period: Mar 10, 2021 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 Sexually Transmitted Disease: No HIV/AIDS: No Genitourinary: No Gastrointestinal: Yes (RECTAL BLEEDING--ANAL FISSURES AND HEMORRHOIDS PER COLONOSCOPY 07/2018) Chronic Constipation, Hemorrhoids, Chronic Diarrhea Musculoskeletal: Yes ("FIBROMYALGIA OR LUPUS" PER PT; GENERALIZED PAIN ) Chronic Back Pain Endocrine: Yes (MORBID OBESITY) HEENT: Yes (GLASSES; S/P TONSILLECTOMY) Tonsilitis Loss of Vision: Bilateral Hearing Impairment: Denies Cancer: No Psychosocial: Yes Anxiety, Depression Integumentary: No Blood Disorders: No Adverse Reaction/Blood Tranf: No (N/A) (KRYSTINA THACKER) Physical Exam Vital Signs Vital Signs - First Documented 04/08/21 10:23 Temp 36.5 Pulse 90 Resp 20 B/P (MAP) 149/103 (118) Pulse Ox 98 O2 Delivery Room Air (MELVIN ROWLAND MD) Vital Signs Capillary Refill : Less Than 3 Seconds (KRYSTINA THACKER) Height, Weight, BMI Height: 5'1.00" Weight: 260lbs. 0.0oz. 117.798482px; 47.00 BMI Method:Stated General Appearance: WD/WN, mild distress, obese HEENT: PERRL/EOMI Neck: non-tender, supple, normal inspection Cardiovascular: normal peripheral pulses, regular rate, rhythm, no edema, no gallop, no murmur Respiratory: chest non-tender, lungs clear, normal breath sounds, no respiratory distress, no accessory muscle use Gastrointestinal: normal bowel sounds, non tender, soft Hips: bilateral hip non-tender, bilateral hip normal inspection, bilateral hip normal range of motion, bilateral hip no evidence of injury Legs: bilateral leg non-tender, bilateral leg normal inspection, bilateral leg normal range of motion, bilateral leg no evidence of injury Knees: bilateral knee normal inspection, bilateral knee normal range of motion, bilateral knee no evidence of injury, bilateral knee bone tenderness (states as baseline with Lupus) Ankles: right ankle non-tender, right ankle normal inspection, right ankle nor mal range of motion, right ankle no evidence of injury; left ankle bone tenderness, left ankle joint effusion, left ankle limited range of motion, left ankle pain, left ankle soft tissue tenderness, left ankle swelling Feet: bilateral foot non-tender, bilateral foot normal inspection, bilateral foot normal range of motion, bilateral foot no evidence of injury Neurologic/Tendon: sensory deficit (decreased sensory perception on 5th digit of left foot), other (unable to most left ankle without pain) Neurologic/Psychiatric: no motor/sensory deficits, alert, normal mood/affect, oriented x 3 Skin: normal color, warm/dry (KRYSTINA THACKER MED STUDENT) Progress/Results/Core Measures Results/Orders My Orders Orders - MELVIN ROWLAND MD Ankle, Left, 3 Views (04/08/21 10:39) (MELVIN ROWLAND MD) Vital Signs/I&O 04/08/21 04/08/21 10:23 12:19 Temp 36.5 36.5 Pulse 90 90 Resp 20 18 B/P (MAP) 149/103 (118) 171/109 Pulse Ox 98 100 O2 Delivery Room Air Room Air (MELVIN ROWLAND MD) Blood Pressure Mean: 118 Progress Progress Note : Progress Note No fractures were identified on radiographs. Daniel wrap applied. Crutches are out of supply in the hospital, and a prescription was provided. (MELVIN ROWLAND MD) Diagnostic Imaging Diagonstic Imaging: Xray Plain Films/CT/US/NM/MRI: ankle Comments NAME: ZEENAT [facility] REC#: [id number] PT STATUS: REG ER : 1985 PHYSICIAN: MELVIN ROWLAND MD ADMIT DATE: 04/08/21/ER Signed Date of Exam:04/08/21 ANKLE, LEFT, 3 VIEWS INDICATION: Left ankle pain. FINDINGS: There is soft tissue swelling both over the medial and lateral malleolus. Ankle mortise is in good alignment. There is a small bony fragment present inferior to the medial malleolus which most likely represents a sub-tibial accessory ossicle as opposed to an old fracture. No previous images for comparison. The articulating surface of the talus and tibia are smooth. IMPRESSION: 1. Soft tissue swelling about the ankle. 2. Bony density along the tip of the medial malleolus as described which most likely is chronic in nature. Dictated by: Dictated on workstation # [id number] Dict: 04/08/21 1057 Trans: 04/08/21 1136 [id number] Interpreted by: REX BARILLAS MD Electronically signed by: REX BARILLAS MD 04/08/21 1136 (MELVIN ROWLAND MD) Departure Impression Primary Impression: Left ankle sprain Qualified Codes: S93.402A - Sprain of unspecified ligament of left ankle, initial encounter Disposition: 01 HOME, SELF-CARE Condition: Improved Departure-Patient Inst. Decision time for Depature: 12:08 (MELVIN ROWLAND MD) Referrals: NO,LOCAL PHYSICIAN (PCP/Family) Primary Care Physician Patient Instructions: Ankle Sprain, Ankle Strengthening Exercises Add. Discharge Instructions: Rest, elevation, icing in 20-minute intervals, and compressive wrapping should help reduce pain and swelling. Use crutches as needed if there is notable pain with walking. Use a Velcro or lace up brace to support your ankle whenever active for the next 4 to 6 weeks. This should help prevent reinjury or worsening of the sprain. Call with questions or concerns. Follow-up with your primary care provider or an orthopedist if you have worsening symptoms or not improving as expected. All discharge instructions reviewed with patient and/or family. Voiced understanding. Medical Student Attestation and Attending Note: I have personally interviewed and examined this patient along with ALEXEI Fish. I have reviewed student documentation including history, physical, and as sessments. I agree with the documentation except where otherwise noted. Exam: General: Alert, oriented, no acute distress, well developed Extremities: There is mild ankle swelling with posterior tenderness at the lateral malleolus. The area of question at the medial malleolus is nontender. There is no notable tenderness within the foot. Neuropsych: Alert, oriented, no focal deficits Skin: Warm and dry without rashes (MELVIN ROWLAND MD) KRYSTINA THACKER MED STUDENT Apr 08, 2021 10:55 MELVIN ROWLAND MD Apr 08, 2021 12:11
--- NOTE | 2021-04-08 11:01 | Diagnostic Imaging Report ---
INDICATION: Left ankle pain. FINDINGS: There is soft tissue swelling both over the medial and lateral malleolus. Ankle mortise is in good alignment. There is a small bony fragment present inferior to the medial malleolus which most likely represents a sub-tibial accessory ossicle as opposed to an old fracture. No previous images for comparison. The articulating surface of the talus and tibia are smooth. IMPRESSION: 1. Soft tissue swelling about the ankle. 2. Bony density along the tip of the medial malleolus as described which most likely is chronic in nature. Dictated by: Dictated on workstation # [id number]
[2021-04-08] MEDS ORDERED: NS 100 ML (IVPB) BAG IV ONE (11:30)
[2021-04-08] MEDS ORDERED: IOHEXOL 350 MG/ML 100 ML (OMNIPAQUE 350) VIAL IV ONE (11:30)
[2021-04-08] MEDS ORDERED: HOLD METFORMIN - RECEIVED CONTRAST 20 ML VIAL IV SCH (11:30)
[2021-04-08] MEDS ORDERED: CATHETER FLUSH 10 ML SYR IV PRN (11:30)
[2021-04-08 12:19] VITALS: BP 171/109
== END 2021-04-08 12:19 | disposition home or self-care (01) ==
LOC: EDUNIT# 10:12 → ER 10:14
DX: S93.402A Sprain of unspecified ligament of left ankle, initial encounter (principal); E66.01 Morbid (severe) obesity due to excess calories; F17.210 Nicotine dependence, cigarettes, uncomplicated; Z68.42 Body mass index [BMI] 45.0-49.9, adult; Z79.52 Long term (current) use of systemic steroids; X50.1XXA Overexertion from prolonged static or awkward postures, initial encounter
CPT/HCPCS: 73610

== ENCOUNTER 2021-09-23 19:31 | Emergency (ER) | payer MEDICAID ==
[2021-09-23 20:20] VITALS: BP 147/100
[2021-09-23] MEDS ORDERED: fentaNYL INJ 100 MCG/2 ML AMP IVP ONE (21:00)
--- NOTE | 2021-09-23 21:00 | ED Integumentary General ---
General Chief Complaint: Skin/Wound Problems Stated Complaint: SORES INFECTED Nursing Triage Note: Pt arrives via POV from home for c/o wounds to the LLQ ABD et on the right inner thigh. Pt reports hx of these wounds, states she has had to have surgery in the past for them. Pt reports moderate pain when ambulating d/t wound on her thigh. Source: patient Exam Limitations: no limitations (DARRION BERRY APRN) History of Present Illness Date Seen by Provider: Sep 23, 2021 Time Seen by Provider: 20:57 Initial Comments To ER by private vehicle from home with reports of wounds to the medial proximal right thigh and anterior left lower abdominal wall for about a week. History of recurrent abscesses mostly to the groin bilaterally and beneath both breast. She denies fevers or chills but does have some localized pain. No nausea or vomiting. Reports a history of lupus but states she does not take anything for it. Timing/Duration: constant, week Severity: moderate Possible Cause: no cause identified Associated Symptoms: denies symptoms (DARRION BERRY APRN) Allergies and Home Medications Allergies Coded Allergies: latex (Unverified Allergy, Mild, RASH, 08/12/18) Patient Home Medication List Home Medication List Reviewed: Yes (DARRION BERRY APRN) Amoxicillin/Potassium Clav (Augmentin 875-125 Tablet) 1 Each Tablet, 1 EACH PO BID Prescribed by: LUCIE CONNOLLY on 10/13/181932 Cephalexin (Cephalexin) 500 Mg Tablet, 500 MG PO BID Prescribed by: RAMY ACOSTA on 11/22/18 010 Hydrocodone/Acetaminophen (Hydrocodone-Acetamin 5-325 mg) 1 Each Tablet, 1 TAB PO Q4H PRN for PAIN-MODERATE (5-7) Prescribed by: DARRION BERRY on 09/23/212130 Prednisone (Prednisone) 10 Mg Tab, 40 MG PO DAILY Prescribed by: LUCIE CONNOLLY on 10/13/181932 Sulfamethoxazole/Trimethoprim (Bactrim Ds Tablet) 1 Each Tablet, 1 EACH PO BID Prescribed by: DARRION BERRY on 11/30/182107 Sulfamethoxazole/Trimethoprim (Bactrim Ds Tablet) 1 Each Tablet, 1 EACH PO BID Prescribed by: DARRION BERRY on 01/26/212199 Sulfamethoxazole/Trimethoprim (Bactrim Ds Tablet) 1 Each Tablet, 1 EACH PO BID Prescribed by: DARRION BERRY on 09/23/212130 Review of Systems Review of Systems Constitutional: see HPI EENTM: see HPI Respiratory: no symptoms reported Cardiovascular: no symptoms reported Genitourinary: no symptoms reported Musculoskeletal: no symptoms reported Skin: see HPI Psychiatric/Neurological: No Symptoms Reported Endocrine: No Symptoms Reported Hematologic/Lymphatic: No Symptoms Reported (DARRION BERRY APRN) Past Glhbcaa-Kskbdy-Tnktvl Hx Patient Social History Tobacco Use?: Yes Tobacco type used: Cigarettes Smoking Status: Current Everyday Smoker Use of E-Cig and/or Vaping dev: No Substance use?: Yes Substance type: Marijuana Alcohol Use?: No Pt feels they are or have been: No (DARRION BERRY APRN) Immunizations Up To Date Influenza Vaccine Up-to-Date: No; Not Current (DARRION BERRY APRN) Seasonal Allergies Seasonal Allergies: Yes (DARRION BERRY APRN) Past Medical History Surgeries: Yes (I&D BUTTOCK/PERIRECTAL ABSCESS; X 1 ; COLONOSCOPY 07/2018) Section, Tonsillectomy, Tubal Ligation Respiratory: No Cardiac: No Neurological: No 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 Sexually Transmitted Disease: No HIV/AIDS: No Genitourinary: No Gastrointestinal: Yes (RECTAL BLEEDING--ANAL FISSURES AND HEMORRHOIDS PER COLONOSCOPY 07/2018) Chronic Constipation, Hemorrhoids, Chronic Diarrhea Musculoskeletal: Yes ("FIBROMYALGIA OR LUPUS" PER PT; GENERALIZED PAIN ) Chronic Back Pain Endocrine: Yes (MORBID OBESITY) HEENT: Yes (GLASSES; S/P TONSILLECTOMY) Tonsilitis Loss of Vision: Bilateral Hearing Impairment: Denies Cancer: No Psychosocial: Yes Anxiety, Depression Integumentary: No Blood Disorders: No Adverse Reaction/Blood Tranf: No (N/A) (DARRION BERRY APRN) Physical Exam Vital Signs Vital Signs - First Documented 09/23/21 20:20 Temp 36.7 Pulse 110 Resp 18 B/P (MAP) 147/100 (116) Pulse Ox 99 O2 Delivery Room Air (LUCIE CONNOLLY DO) Vital Signs Capillary Refill : Less Than 3 Seconds (DARRION BERRY APRN) General Appearance: WD/WN, no apparent distress, obese, other (Alert and oriented no distress very pleasant) HEENT: PERRL/EOMI, normal ENT inspection Neck: non-tender, full range of motion Respiratory: no respiratory distress, no accessory muscle use Gastrointestinal: normal bowel sounds, non tender, soft Neurologic/Psychiatric: alert, normal mood/affect, oriented x 3 Skin: normal color, warm/dry Skin Problem Character: abscess, other (Large half dollar sized fluctuant abscess to the proximal medial right thigh. This will require incision and drainage but minimal surrounding cellulitis. Anterior left lower abdominal wall does have a large area of cellulitis with a small punctum and some induration but no fluctuance. This was outlined with a skin pen.) (DARRION BERRY APRN) Progress/Results/Core Measures Results/Orders Lab Results Laboratory Tests Test 09/23/21 20:56 09/23/21 21:00 Range/Units White Blood Count 17.7 H 4.3-11.0 10^3/uL Red Blood Count 5.14 H 3.80-5.11 10^6/uL Hemoglobin 14.5 11.5-16.0 g/dL Hematocrit 44 35-52 % Mean Corpuscular Volume 86 80-99 fL Mean Corpuscular Hemoglobin 28 25-34 pg Mean Corpuscular Hemoglobin Concent 33 32-36 g/dL Red Cell Distribution Width 13.8 10.0-14.5 % Platelet Count 386 130-400 10^3/uL Mean Platelet Volume 11.3 9.0-12.2 fL Immature Granulocyte % (Auto) 1 % Neutrophils (%) (Auto) 63 42-75 % Lymphocytes (%) (Auto) 30 12-44 % Monocytes (%) (Auto) 5 0-12 % Eosinophils (%) (Auto) 1 0-10 % Basophils (%) (Auto) 0 0-10 % Neutrophils # (Auto) 11.2 H 1.8-7.8 10^3/uL Lymphocytes # (Auto) 5.3 H 1.0-4.0 10^3/uL Monocytes # (Auto) 0.9 0.0-1.0 10^3/uL Eosinophils # (Auto) 0.1 0.0-0.3 10^3/uL Basophils # (Auto) 0.1 0.0-0.1 10^3/uL Immature Granulocyte # (Auto) 0.1 0.0-0.1 10^3/uL Neutrophils % (Manual) 61 % Lymphocytes % (Manual) 33 % Monocytes % (Manual) 3 % Eosinophils % (Manual) 1 % Band Neutrophils 2 % Blood Morphology Comment NORMAL Prothrombin Time 13.1 12.2-14.7 SEC INR Comment 1.0 0.8-1.4 Activated Partial Thromboplast Time 31 24-35 SEC Sodium Level 138 135-145 MMOL/L Potassium Level 3.6 3.6-5.0 MMOL/L Chloride Level 99 98-107 MMOL/L Carbon Dioxide Level 23 21-32 MMOL/L Anion Gap 16 H 5-14 MMOL/L Blood Urea Nitrogen 7 7-18 MG/DL Creatinine 0.91 0.60-1.30 MG/DL Estimat Glomerular Filtration Rate 85 BUN/Creatinine Ratio 8 Glucose Level 94 70-105 MG/DL Lactic Acid Level 1.85 0.50-2.00 MMOL/L Calcium Level 9.6 8.5-10.1 MG/DL Corrected Calcium 9.4 8.5-10.1 MG/DL Total Bilirubin 0.2 0.1-1.0 MG/DL Aspartate Amino Transf (AST/SGOT) 17 5-34 U/L Alanine Aminotransferase (ALT/SGPT) 17 0-55 U/L Alkaline Phosphatase 95 40-136 U/L Total Protein 8.1 6.4-8.2 GM/DL Albumin 4.2 3.2-4.5 GM/DL Serum Test, Qualitative NEGATIVE NEGATIVE Urine Color YELLOW Urine Clarity CLEAR Urine pH 6.0 5-9 Urine Specific [place] 1.025 H 1.016-1.022 Urine Protein TRACE H NEGATIVE Urine Glucose (UA) NEGATIVE NEGATIVE Urine Ketones NEGATIVE NEGATIVE Urine Nitrite NEGATIVE NEGATIVE Urine Bilirubin NEGATIVE NEGATIVE Urine Urobilinogen 1.0 < = 1.0 MG/DL Urine Leukocyte Esterase TRACE H NEGATIVE Urine RBC (Auto) 3+ H NEGATIVE Urine RBC 5-10 H /HPF Urine WBC 5-10 H /HPF Urine Squamous Epithelial Cells 5-10 /HPF Urine Crystals NONE /LPF Urine Bacteria MODERATE H /HPF Urine Casts NONE /LPF Urine Mucus SMALL H /LPF Urine Culture Indicated YES (LUCIE CONNOLLY DO) Medications Given in ED Current Medications Medications Dose Ordered Sig/[place]que Route Start Time Stop Time Status Last Admin Dose Admin Acetaminophen/ Hydrocodone Bitart 1 ea Q4H PRN PO 09/23/21 21:00 09/23/21 22:05 DC 09/23/21 21:45 1 EA Ceftriaxone Sodium/Dextrose 50 ml @ 100 mls/hr ONCE ONCE IV 09/23/21 21:30 09/23/21 21:59 DC 09/23/21 21:45 100 MLS/HR Fentanyl Citrate 75 mcg ONCE ONCE IVP 09/23/21 21:00 09/23/21 21:01 DC 09/23/21 21:08 75 MCG Trimethoprim/ Sulfamethoxazole 2 ea ONCE ONCE PO 09/23/21 21:30 09/23/21 21:31 DC 09/23/21 21:45 2 EA (JURGEN CONNOLLYA K DO) Vital Signs/I&O 09/23/21 09/23/21 20:20 20:20 Temp 36.7 Pulse 110 Resp 18 B/P (MAP) 147/100 (116) Pulse Ox 99 99 O2 Delivery Room Air Room Air (MOHSENJURGENA K DO) Blood Pressure Mean: 116 Departure Communication (Admissions) Fluctuant abscess to the right thigh will need incision and drainage. The abdominal wall erythema has a necrotic center about 4 to 5 mm. The total area of erythema measures 22 x 13 cm. There is a smaller area approximately 5 cm in diameter of induration in the center of this. On bedside ultrasound there is no fluid collection to suggest drainable abscess. (DARRION BERRY APRN) Impression Primary Impression: Abdominal wall cellulitis Additional Impression: Abscess of right thigh Disposition: HOME, SELF-CARE Condition: Stable Departure-Patient Inst. Decision time for Depature: 21:26 (DARRION BERRY APRN) Referrals: NO,LOCAL PHYSICIAN (PCP/Family) Primary Care Physician Patient Instructions: Abscess Incision and Drainage (DC) Add. Discharge Instructions: 1. Warm compresses to the area. Return to ER for any concerns 2. Change dressing as needed. Take the antibiotics. Return to ER for any worsening. All discharge instructions reviewed with patient and/or family. Voiced understanding. Scripts Sulfamethoxazole/Trimethoprim (Bactrim Ds Tablet) 1 Each Tablet 1 EACH PO BID, #14 TAB Prov: DARRION BERRY APRN 09/23/21 Hydrocodone/Acetaminophen (Hydrocodone-Acetamin 5-325 mg) 1 Each Tablet 1 TAB PO Q4H PRN for PAIN-MODERATE (5-7), #10 TAB Prov: DARRION BERRY APRN 09/23/21 Work/School Note: Work Release Form Date Seen in the Emergency Department: Sep 23, 2021 Return to Work: Sep 25, 2021 ATTENDING PHYSICIAN NOTE: I WAS PHYSICALLY PRESENT ER PHYSICIAN, BUT I WAS NOT INVOLVED IN ANY DECISION MAKING OR ANY CARE OF THIS PATIENT. (LUCIE CONNOLLY DO) DARRION BERRY DIE REPAIRER TRIMMER DIES Sep 23, 2021 20:59 LUCIE CONNOLLY DO Sep 24, 2021 05:48
[2021-09-23 21:08] LABS: BASOPHILS # (AUTO) 0.1 10^3/uL (0.0-0.1); BASOPHILS % (AUTO) 0 % (0-10); EOSINOPHILS # (AUTO) 0.1 10^3/uL (0.0-0.3); EOSINOPHILS % (AUTO) 1 % (0-10); HEMATOCRIT 44 % (35-52); HEMOGLOBIN 14.5 g/dL (11.5-16.0); LYMPHOCYTES # (AUTO) 5.3 10^3/uL (1.0-4.0); LYMPHOCYTES % (AUTO) 30 % (12-44); MEAN CORPUSCULAR HEMOGLOBIN 28 pg (25-34); MEAN CORPUSCULAR HGB CONC 33 g/dL (32-36); MEAN CORPUSCULAR VOLUME 86 fL (80-99); MEAN PLATELET VOLUME 11.3 fL (9.0-12.2); MONOCYTES # (AUTO) 0.9 10^3/uL (0.0-1.0); MONOCYTES % (AUTO) 5 % (0-12); NEUTROPHILS # (AUTO) 11.2 10^3/uL (1.8-7.8); NEUTROPHILS % (AUTO) 63 % (42-75); PLATELET COUNT 386 10^3/uL (130-400); WHITE BLOOD COUNT 17.7 10^3/uL (4.3-11.0)
[2021-09-23 21:09] LABS: BILIRUBIN,URINE NEGATIVE (NEGATIVE); CLARITY,URINE CLEAR; COLOR,URINE YELLOW; GLUCOSE, URINE (UA) NEGATIVE (NEGATIVE); KETONES,URINE NEGATIVE (NEGATIVE); LEUKOCYTE ESTERASE ,URINE TRACE (NEGATIVE); NITRITE,URINE NEGATIVE (NEGATIVE); PROTEIN,URINE TRACE (NEGATIVE)
[2021-09-23 21:19] LABS: ALBUMIN 4.2 GM/DL (3.2-4.5); POTASSIUM 3.6 MMOL/L (3.6-5.0)
[2021-09-23 21:19] LABS: BACTERIA,URINE MODERATE /HPF
[2021-09-23 21:20] LABS: CALCIUM 9.6 MG/DL (8.5-10.1)
[2021-09-23 21:22] LABS: TOTAL PROTEIN 8.1 GM/DL (6.4-8.2)
[2021-09-23 21:23] LABS: BILIRUBIN,TOTAL 0.2 MG/DL (0.1-1.0)
[2021-09-23 21:25] LABS: CREATININE SERUM 0.91 MG/DL (0.60-1.30)
[2021-09-23 21:27] LABS: PROTHROMBIN TIME PATIENT 13.1 SEC (12.2-14.7)
[2021-09-23] MEDS ORDERED: TRIM/SULFAMETH 160/800 (SEPTRA DS) TAB PO ONE (21:30)
[2021-09-23] MEDS ORDERED: cefTRIAXone 1 GM PRE-MIX 50 ML IV ONE (21:30)
[2021-09-23] MEDS ORDERED: ACHD5005 PO (21:31)
[2021-09-23] MEDS ORDERED: SULF1TAB38 PO (21:31)
[2021-09-23 21:34] LABS: BAND NEUTROPHILS 2 %; EOSINOPHILS % (MANUAL) 1 %; LYMPHOCYTES % (MANUAL) 33 %; MONOCYTES % (MANUAL) 3 %; NEUTROPHILS % (MANUAL) 61 %; RBC MORPH NORMAL
== END 2021-09-23 22:05 | disposition home or self-care (01) ==
LOC: EDUNIT# 19:31 → ER 19:34
DX: L03.311 Cellulitis of abdominal wall (principal); L02.415 Cutaneous abscess of right lower limb; E66.01 Morbid (severe) obesity due to excess calories; F17.210 Nicotine dependence, cigarettes, uncomplicated
CPT/HCPCS: 36415; 80053; 81000; 83605; 84703; 85007; 85027; 85610; 85730; 87040; 87070; 87088; 87205

== ENCOUNTER 2023-02-25 03:38 | Emergency (ER) | payer MEDICAID ==
[~2023-02-25] VITALS: Ht 154.9 cm; Wt 113.3 kg
[~2023-02-25 03:38] MED LIST changes: +ACHD5005 PO
[2023-02-25 04:13] VITALS: BP 163/84
[2023-02-25] MEDS ORDERED: RX-TRIMETH/SULFA. 160-800 MG (BACTRIM DS) TAB PPK#2 PO STA (05:09)
--- NOTE | 2023-02-25 18:12 | ED Integumentary General ---
General Chief Complaint: Skin/Wound Problems Stated Complaint: SORE ON STOMACH Nursing Triage Note: PT AMB TO FT 3 WITH CC OF "SORE ON STOMACH". PT STATES THAT SHE NOTICED IT WEDNESDAY. PT TOOK TYLENOL FOR PAIN THIS EVENING. Source: patient History of Present Illness Date Seen by Provider: Feb 25, 2023 Time Seen by Provider: 03:50 Initial Comments PT ARRIVES VIA POV FROM HOME PT STATES "I GET THESE SORES ALL THE TIME" STATES SHE NOTICED A "SORE" ON HER LEFT LOWER ABDOMEN ON WEDNESDAY SHE HAS NOT HAD FEVER NO DRAINAGE SHE REPORTS TO ME SHE HAS NOT TAKEN ANYTHING FOR SYMPTOMS SHE HAS NOT SOUGHT CARE UNTIL TONIGHT SYMPTOMS NO DIFFERENT TONIGHT WANTING A WORK NOTE. 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 Allergies and Home Medications Allergies Coded Allergies: latex (Unverified Allergy, Mild, RASH, 08/12/18) Patient Home Medication List Home Medication List Reviewed: Yes Amoxicillin/Potassium Clav (Augmentin 875-125 Tablet) 1 Each Tablet, 1 EACH PO BID Prescribed by: LUCIE CONNOLLY on 10/13/181932 Cephalexin (Cephalexin) 500 Mg Tablet, 500 MG PO BID Prescribed by: RAMY ACOSTA on 11/22/18 010 Hydrocodone/Acetaminophen (Hydrocodone-Acetamin 5-325 mg) 1 Each Tablet, 1 TAB PO Q4H PRN for PAIN-MODERATE (5-7) Prescribed by: DARRION BERRY on 09/23/212130 Prednisone (Prednisone) 10 Mg Tab, 40 MG PO DAILY Prescribed by: LUCIE CONNOLLY on 10/13/181932 Sulfamethoxazole/Trimethoprim (Bactrim Ds Tablet) 1 Each Tablet, 1 EACH PO BID Prescribed by: DARRION BERRY on 11/30/182107 Sulfamethoxazole/Trimethoprim (Bactrim Ds Tablet) 1 Each Tablet, 1 EACH PO BID Prescribed by: DARRION BERRY on 01/26/212199 Sulfamethoxazole/Trimethoprim (Bactrim Ds Tablet) 1 Each Tablet, 1 EACH PO BID Prescribed by: DARRION BERRY on 09/23/212130 Review of Systems Review of Systems Constitutional: no symptoms reported Skin: see HPI Past Dvanjlu-Byiwef-Cszphv Hx Patient Social History Tobacco Use?: Yes Tobacco type used: Cigarettes Smoking Status: Current Everyday Smoker Substance use?: Yes Substance type: Marijuana Substance frequency: Daily Alcohol Use?: No Immunizations Up To Date First/Initial COVID19 Vaccinat: NOT VACCINATED Second COVID19 Vaccination Jaime: NOT VACCINATED Third COVID19 Vaccination Date: NOT VACCINATED Seasonal Allergies Seasonal Allergies: Yes Past Medical History Surgeries: Yes (I&D BUTTOCK/PERIRECTAL ABSCESS; X 1 ; COLONOSCOPY 07/2018) Section, Tonsillectomy, Tubal Ligation Respiratory: No Cardiac: No Neurological: No 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 Sexually Transmitted Disease: No HIV/AIDS: No Genitourinary: No Gastrointestinal: Yes (RECTAL BLEEDING--ANAL FISSURES AND HEMORRHOIDS PER COLONOSCOPY 07/2018) Chronic Constipation, Hemorrhoids, Chronic Diarrhea Musculoskeletal: Yes ("FIBROMYALGIA OR LUPUS" PER PT; GENERALIZED PAIN ) Chronic Back Pain Endocrine: Yes (MORBID OBESITY) HEENT: Yes (GLASSES; S/P TONSILLECTOMY) Tonsilitis Loss of Vision: Bilateral Hearing Impairment: Denies Cancer: No Psychosocial: Yes Anxiety, Depression Integumentary: Yes (MULTIPLE ABSCESSES/CELLULITIS) Blood Disorders: No Adverse Reaction/Blood Tranf: No (N/A) Physical Exam Vital Signs Vital Signs - First Documented 02/25/23 03:44 Temp 36.4 Pulse 92 B/P (MAP) 163/84 (110) Pulse Ox 99 O2 Delivery Room Air Capillary Refill : General Appearance: WD/WN, no apparent distress, obese Gastrointestinal: other (UNDER PANNUS IN LLQ AREA THERE IS A 2 X 2 CM AREA OF MODERATE ERYTHEMA AND SLIGHT INDURATION, WITH FAINT SURROUNDING ERYTHEMA OF 8 X 10 CM. NO POINTING, NO FLUCTUANCE, NO DRAINAGE, NO STREAKS. ) Neurologic/Psychiatric: no motor/sensory deficits, alert, normal mood/affect, oriented x 3 Skin: normal color, warm/dry, other ( ABOVE) Progress/Results/Core Measures Results/Orders My Orders Orders - LUCIE CONNOLLY DO Rx-Trimeth/Sulfameth Ds Tab (Rx-Bactrim/ (02/25/23 05:09) Vital Signs/I&O 02/25/23 02/25/23 03:44 04:13 Temp 36.4 Pulse 92 92 B/P (MAP) 163/84 (110) 163/84 Pulse Ox 99 O2 Delivery Room Air Room Air Blood Pressure Mean: 110 Progress Progress Note : Progress Note VITALS ON ARRIVAL: TEMP 36.4, HR 92, BP 163/84, O2 SAT 99% ON ROOM AIR DISCUSSED ANTICIPATED COURSE, SYMPTOMATIC TREATMENT, MEDICATIONS,NEED FOR FOLLOW UP AND RETURN PRECAUTIONS PT HAS BEEN ON BACTRIM IN THE PAST AND NOT HAD PROBLEMS PT WAS SEEN DURING COMPUTER DOWN TIME. Departure Impression Primary Impression: Abdominal wall cellulitis Disposition: HOME, SELF-CARE Condition: Stable Departure-Patient Inst. Decision time for Depature: 04:00 Referrals: KALA MIXON NP (PCP) Primary Care Physician Patient Instructions: Cellulitis (Skin Infection), Adult (DC) LUCIE CONNOLLY DO Feb 25, 2023 18:12
== END 2023-02-25 04:13 | disposition home or self-care (01) ==
LOC: EDUNIT# 03:38 → ER 03:39
DX: L03.311 Cellulitis of abdominal wall (principal); F17.210 Nicotine dependence, cigarettes, uncomplicated; E66.01 Morbid (severe) obesity due to excess calories; Z68.42 Body mass index [BMI] 45.0-49.9, adult; Z91.040 Latex allergy status; Z28.310 Unvaccinated for COVID-19
CPT/HCPCS: 99282

== ENCOUNTER 2023-03-29 19:50 | Emergency (ER) | payer MEDICAID ==
[~2023-03-29] VITALS: Ht 154 cm; Wt 117.0 kg
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
[2023-03-29 20:20] VITALS: BP 139/87
== END 2023-03-29 20:45 | disposition home or self-care (01) ==
LOC: EDUNIT# 19:50 → ER 19:52
DX: S30.1XXA Contusion of abdominal wall, initial encounter (principal); E66.01 Morbid (severe) obesity due to excess calories; Z68.42 Body mass index [BMI] 45.0-49.9, adult; Z28.310 Unvaccinated for COVID-19; Z91.040 Latex allergy status; X58.XXXA Exposure to other specified factors, initial encounter
CPT/HCPCS: 99281